=== PATIENT | female | born 1990 | race African-American/Black ===

== ENCOUNTER 2019-12-20 14:28 | Emergency (ER) | payer MEDICAID ==
--- NOTE | 2019-12-20 15:20 | ER Document Report ---
ED Medical Screen (RME) - General Chief Complaint: Abdominal Pain Stated Complaint: ABDOMINAL PAIN Time Seen by Provider: 12/20/19 15:12 Notes: Patient is a 29-year-old female who presents to the emergency department with a chief complaint of abdominal pain. Patient reports she has had some left lower pelvic pain that started 2 days ago. Patient reports this was sharp in nature. Patient reports this morning the pain is also located on the right pelvic area and is constant. Patient reports it is now dull which is different from her normal. Patient reports that she does have a history of ovarian cyst which is usually the sharp type of pain but this is different. Patient reports nausea. Patient reports last menstrual cycle was November 24. Patient reports she is sexually active but not currently on control. Patient denies vaginal bleeding or discharge. - Related Data Allergies/Adverse Reactions: amoxicillin Allergy (Verified 12/20/19 14:50) Penicillins Allergy (Verified 12/20/19 14:49) Past Medical History - Social History Chew tobacco use (# tins/day): No Frequency of alcohol use: None Physical Exam - Vital signs Vitals: Temp Pulse Resp BP Pulse Ox 98.8 F 89 18 113/71 100 12/20/19 14:32 12/20/19 14:32 12/20/19 14:32 12/20/19 14:32 12/20/19 14:32 - Abdominal Inspection: Normal Distension: No distension Bowel sounds: Normal Tenderness: Nontender Organomegaly: No organomegaly Course - Re-evaluation Re-evalutation: 12/20/19 15:19 I have greeted and performed a rapid initial assessment of this patient. A comprehensive ED assessment and evaluation of the patient, analysis of test results and completion of the medical decision making process will be conducted by additional ED providers. Patient is not tachycardic, hypotensive or febrile in triage. Patient nontoxic- appearing. - Vital Signs Vital signs: Temp Pulse Resp BP Pulse Ox 98.8 F 89 18 113/71 100 12/20/19 14:32 12/20/19 14:32 12/20/19 14:32 12/20/19 14:32 12/20/19 14:32
[2019-12-20 15:56] LABS: ABSOLUTE EOSINOPHILS # (AUTO) 0.3 10^3/uL (0.0-0.6); ABSOLUTE LYMPHOCYTES (AUTO) 2.4 10^3/uL (0.5-4.7); ABSOLUTE MONOCYTES (AUTO) 0.3 10^3/uL (0.1-1.4); ABSOLUTE NEUT (AUTO) 2.5 10^3/uL (1.7-8.2); BASOPHILS % (AUTO) 0.7 % (0-2); EOSINOPHILS % (AUTO) 5.4 % (0-6); HEMATOCRIT 38.8 % (36.0-47.0); HEMOGLOBIN 13.1 g/dL (12.0-15.5); LYMPHOCYTES % (AUTO) 43.5 % (13-45); MEAN CORPUSCULAR HEMOGLOBIN 30.7 pg (27.0-33.4); MEAN CORPUSCULAR HGB CONC 33.8 g/dL (32.0-36.0); MEAN CORPUSCULAR VOLUME 91 fl (80-97); MONOCYTES % (AUTO) 5.9 % (3-13); PLATELET COUNT 341 10^3/uL (150-450); RED BLOOD COUNT 4.27 10^6/uL (3.72-5.28); RED CELL DISTRIBUTION WIDTH 13.1 % (11.5-14.0); SEGMENTED NEUTROPHILS % (AUTO) 44.5 % (42-78); TOTAL CELLS COUNTED % (AUTO) 100 %; WHITE BLOOD COUNT 5.6 10^3/uL (4.0-10.5)
[2019-12-20 16:02] LABS: APPEARANCE,URINE CLEAR; BILIRUBIN,URINE NEGATIVE (NEGATIVE); COLOR,URINE YELLOW; GLUCOSE, URINE NEGATIVE (NEGATIVE); KETONES,URINE NEGATIVE (NEGATIVE); LEUKOCYTE ESTERASE,URINE NEGATIVE (NEGATIVE); NITRITE,URINE NEGATIVE (NEGATIVE); PROTEIN,URINE NEGATIVE (NEGATIVE); URINE SPECIFIC GRAVITY 1.029; UROBILINOGEN,URINE NEGATIVE mg/dL (<2.0)
[2019-12-20 16:16] LABS: ALBUMIN 4.8 g/dL (3.5-5.0); ALKALINE PHOSPHATASE 48 U/L (38-126); ANION GAP 9 (5-19); ASPARTATE AMINO TRANSFERASE 22 U/L (14-36); BILIRUBIN,TOTAL 0.3 mg/dL (0.2-1.3); BLOOD UREA NITROGEN 19 mg/dL (7-20); CALCIUM 9.9 mg/dL (8.4-10.2); CARBON DIOXIDE 25 mmol/L (22-30); CHLORIDE 105 mmol/L (98-107); GLUCOSE 88 mg/dL (75-110); POTASSIUM 4.5 mmol/L (3.6-5.0); TOTAL PROTEIN 8.1 g/dL (6.3-8.2)
--- NOTE | 2019-12-20 17:01 | RADIOLOGY REPORT (SQ) ---
EXAM DESCRIPTION: U/S NON OB PEL TV W/DOPPLER COMPLETED DATE/TIME: 12/20/2019 4:11 pm REASON FOR STUDY: pelvic pain, hx. ovarian cyst COMPARISON: None. TECHNIQUE: Dynamic and static grayscale images acquired of the pelvis via transvaginal approach and recorded on PACS. Additional selected color Doppler and spectral images recorded. LIMITATIONS: None. FINDINGS: UTERUS: Retroverted. Heterogeneous echotexture. 1.9 cm fundal fibroid. ENDOMETRIAL STRIPE: No focal or generalized thickening. No masses. CERVIX: 2 mm nabothian cysts -calcifications. RIGHT OVARY AND DOPPLER: Normal size. No worrisome masses. 10 mm paraovarian cyst. Normal arterial vascular flow without evidence for torsion. LEFT OVARY AND DOPPLER: Normal size. No worrisome masses. 2.3 cm hemorrhagic cyst. Normal arterial vascular flow without evidence for torsion. FREE FLUID: Moderate cul-de-sac free fluid. OTHER: Mildly dilated veins in the each adnexa. MEASUREMENTS: UTERUS: 7.9 x 4.7 x 5.3 cm ENDOMETRIAL STRIPE: 10 mm RIGHT OVARY: 3.4 x 1.3 x 2.1 cm LEFT OVARY: 4.1 x 2.7 x 2.5 cm IMPRESSION: No evidence of torsion. 2.3 cm left ovarian hemorrhagic cyst. Moderate cul-de-sac free f luid. 1.9 cm fundal fibroid. TECHNICAL DOCUMENTATION: JOB ID: [id number] [id number] [employer]- All Rights Reserved Rev-04/12 Reading location - IP/workstation name: [email or web address]
--- NOTE | 2019-12-20 20:36 | ER Document Report ---
ED General - General Chief Complaint: Abdominal Pain Stated Complaint: ABDOMINAL PAIN Time Seen by Provider: 12/20/19 15:12 [facility] [[facility]] - Follow up as needed Notes: Patient is a 29-year-old female who presents to the emergency department with a chief complaint of left lower quadrant abdominal pain. Her pain started about 2 days ago. She states that it is sharp pain. Pain comes and goes. She has not taken anything to help with pain. Patient has history of ovarian cysts in the past. Last menstrual cycle was November 24. Patient states that she is sexually active. She has had 7 pregnancies and 3 births in the past. TRAVEL OUTSIDE OF THE [place] IN LAST 30 DAYS: No - Related Data Allergies/Adverse Reactions: amoxicillin Allergy (Verified 12/20/19 14:50) Penicillins Allergy (Verified 12/20/19 14:49) Past Medical History - Social History Smoking Status: Never Smoker Chew tobacco use (# tins/day): No Frequency of alcohol use: None Family History: Reviewed & Not Pertinent Patient has suicidal ideation: No Patient has homicidal ideation: No Review of Systems - Review of Systems Notes: REVIEW OF SYSTEMS: CONSTITUTIONAL : Denies recent illness. Denies recent unintentional weight loss. Denies fever, chills, or sweats. EENT: Denies eye, ear, throat, or mouth pain, discharge, or symptoms. Denies nasal or sinus congestion. CARDIOVASCULAR: Denies chest pain. RESPIRATORY: Denies shortness of breath, cough, congestion, difficulty breathing, or wheezing. GASTROINTESTINAL: Denies nausea, vomiting, and diarrhea. Denies constipation. See HPI. GENITOURINARY: Denies difficulty urinating, burning, blood in urine, urgency or frequency. FEMALE GENITOURINARY: See HPI. MUSCULOSKELETAL: Denies neck and back pain. Denies joint pain or swelling. SKIN: Denies rash, itchiness, or lesions HEMATOLOGIC : Denies easy bruising or bleeding. LYMPHATIC: Denies swollen, painful, enlarged glands. NEUROLOGICAL: Denies no numbness or tingling denies weakness. Denies headache. Denies altered mental status. Denies alteration in speech. PSYCHIATRIC: Denies stress, anxiety, alteration in sleep patterns, or depress ion. All other systems reviewed and negative. Physical Exam - Vital signs Vitals: Temp Pulse Resp BP Pulse Ox 98.8 F 89 18 113/71 100 01/25/20 14:32 12/20/19 14:32 12/20/19 14:32 12/20/19 14:32 12/20/19 14:32 - Notes Notes: PHYSICAL EXAMINATION: GENERAL: Appears well, healthy, well-nourished, no acute distress. HEAD: Normocephalic, atraumatic. EYES: PERRL, conjunctiva normal, all extraocular movements intact, sclera nonicteric ENT: Moist mucous membranes. NECK: Supple, no noticeable swelling, redness, rash. Normal range of motion. LUNGS: Equal breath sounds bilaterally and clear to auscultation. No wheezes rales or rhonchi. CARDIOVASCULAR: S1-S2, regular rate, regular rhythm. Radial pulses 2+, normal. ABDOMEN: Normoactive bowel sounds. Soft, mildly tender left lower quadrant, no guarding, no rebound tenderness, and no masses palpated. EXTREMITIES: Normal strength and range of motion, no pitting or edema. No cyanosis. NEUROLOGICAL: Moves all extremities upon command. Strength 5/5 in all extremities. PSYCH: Normal mood, normal affect. SKIN: Warm, dry. No rash, lesions, ulcerations noted. Normal skin turgor. Course - Re-evaluation Re-evalutation: 12/20/19 20:36 Hematology and chemistries are unremarkable. Urinalysis shows a small amount of blood. Patient's transvaginal ultrasound shows 2.3 cm left ovarian hemorrhagic cyst and 1.9 cm fundal fibroid. I have advised the patient to take tylelonl 1000 mg as needed for pain. She will also follow-up with her [facility] or [facility] regards to this visit. She is in agreement with this plan. I have a very low suspicion for pelvic inflammatory disease, tubo-ovarian torsion, or any life-threatening etiology at this time. Follow-up precautions were given. Verbal discharge instructions were given to the patient. They verbalized understanding. They are stable for discharge. - Vital Signs Vital signs: Temp Pulse Resp BP Pulse Ox 98.8 F 89 18 113/71 100 12/20/19 14:32 12/20/19 14:32 12/20/19 14:32 12/20/19 14:32 12/20/19 14:32 - Laboratory Result Diagrams: 12/20/19 15:25 12/20/19 15:25 Laboratory results interpreted by me: 12/20/19 15:25 Urine Blood SMALL H Discharge - Discharge Clinical Impression: Hemorrhagic cyst of left ovary, Pelvic pain Uterine fibroid Qualifiers: Uterine leiomyoma location: unspecified location Qualified Code(s): D25.9 - Leiomyoma of uterus, unspecified Condition: Stable Disposition: HOME, SELF-CARE Additional Instructions: You are seen today in the emergency department for left pelvic pain. You have a hemorrhagic cyst, which is a cyst that burst and bled. Usually these will resolve on their own. Please follow-up with OB in regards to this visit. You can take Tylenol 1000 mg every 6 hours as needed for your pain. If you have worsening pain, please return to the emergency department. Referrals: [facility] [Provider Group] - Follow up as needed
[2019-12-20 20:48] VITALS: BP 116/65
== END 2019-12-20 20:49 | disposition home or self-care (01) ==
LOC: ER 14:28
DX: N83.202 Unspecified ovarian cyst, left side (principal); D25.9 Leiomyoma of uterus, unspecified; R10.32 Left lower quadrant pain; R10.2 Pelvic and perineal pain; Z88.0 Allergy status to penicillin
CPT/HCPCS: 36415; 76830; 80053; 81001; 81025; 85025; 93976; 99284